=== PATIENT | male | born 1955 | race Caucasian/White ===

== ENCOUNTER 2017-04-04 11:03 | Emergency (ER) | payer MEDICAID ==
[2017-04-04 11:04] VITALS: BMI 27.8
[2017-04-04 11:10] VITALS: O2SAT 96
--- NOTE | 2017-04-04 12:08 | C.PDOC ---
History Of Present Illness 61 year old male was brought to the ED by EMS with complaints of upper left back pain, left elbow and left ankle pain since this morning after falling in the bath tub. Patient denies LOC, head trauma, confusion, abdominal pain, dizziness or vomiting. Time Seen by Provider: 04/04/17 11:22 Chief Complaint (Nursing): Back Pain History Per: Patient History/Exam Limitations: no limitations Onset/Duration Of Symptoms: Hrs Current Symptoms Are (Timing): Still Present Quality Of Discomfort: "Pain" Associated Symptoms: None Recent travel outside of the [place]: No Additional History Per: EMS Past Medical History Reviewed: Historical Data, Nursing Documentation, Vital Signs Vital Signs: Last Vital Signs Temp 98.9 F 04/04/17 12:10 Pulse 77 04/04/17 12:10 Resp 18 04/04/17 12:10 BP 135/80 04/04/17 12:10 Pulse Ox 96 04/04/17 13:51 - Medical History PMH: Diabetes, HTN, Hypercholesterolemia Family History: States: Unknown Family Hx - Social History Hx Tobacco Use: No Hx Alcohol Use: No Hx Substance Use: No - Immunization History Hx Tetanus Toxoid Vaccination: No Hx Influenza Vaccination: No Hx Pneumococcal Vaccination: No Review Of Systems Constitutional: Negative for: Fever, Chills Eyes: Negative for: Vision Change ENT: Negative for: Ear Pain, Throat Pain Cardiovascular: Negative for: Chest Pain Respiratory: Negative for: Shortness of Breath Gastrointestinal: Negative for: Nausea, Vomiting Musculoskeletal: Positive for: Arm Pain (left elbow pain), Back Pain (upper left back pain), Foot Pain (left ankle pain) Skin: Negative for: Bruising Neurological: Negative for: Weakness, Numbness, Headache, Dizziness Physical Exam - Physical Exam Appears: Non-toxic, No Acute Distress Skin: Warm, Dry Head: Atraumatic, Normacephalic Eye(s): bilateral: Normal Inspection, EOMI Oral Mucosa: Moist Neck: Normal ROM, No Midline Cervical Tenderness, No Paracervical Tenderness, Supple Chest: Symmetrical, No Deformity Cardiovascular: Rhythm Regular Respiratory: Normal Breath Sounds, No Wheezing Back: Normal Inspection, No Vertebral Tenderness, No Decreased ROM, No Paraspinal Tenderness, Other ( Tender hematoma to left scapular area ) Extremity: Normal ROM (Full ROM of the left elbow), Tenderness (Tenderness to medial aspect of the left ankle and lateral left elbow), No Pedal Edema, No Calf Tenderness, Capillary Refill (good capillary refill, less than two seconds ), No Deformity, No Swelling Neurological/Psych: Oriented x3, Normal Speech Gait: Steady ED Course And Treatment O2 Sat by Pulse Oximetry: 96 (room air ) - Radiology CXR: Viewed By Me, Read By Radiologist CXR Interpretation: Yes: No Acute Disease. No: Infiltrates - Other Rad Left Ankle X-Ray X-Ray: Interpreted by Me, Viewed By Me Interpretation: Negative for fracture and dislocation. Progress Note: CXR, Left Ankle and Left Elbow X-ray were ordreed. Patient was given Motrin. All imaging reviewed with no findings. Patient reports pain mildly improving. Recommend rest, ice and to take Ibuprofen as needed. Disposition Counseled Patient/Family Regarding: Studies Performed, Diagnosis, Need For Followup, Rx Given - Disposition Referrals: [facility] [Outside] [facility] [Outside] Disposition: HOME/ ROUTINE Disposition Time: 12:15 Condition: GOOD Additional Instructions: Xray reviewed showing no acute fracture or dislocation. Advise to rest and take pain medication as needed, ibuprofen 600mg every 8 hours with food to not upset stomach. If pain persists, follow up with orthopedic in one week. Prescriptions: Ibuprofen [Motrin] 600 mg PO Q8 #30 tab Instructions: Contusion in Adults (ED) Forms: [employer] (Turkmen) Print Language: UKRAINIAN - POA Present On Arrival: None - Clinical Impression Clinical Impression: Contusion of back, Contusion of elbow, left, Left ankle injury, Fall in bathtub - Scribe Statement The provider has reviewed the documentation as recorded by the Scribjovany Cai All medical record entries made by the Jahairaibjovany were at my direction and personally dictated by me. I have reviewed the chart and agree that the record accurately reflects my personal performance of the history, physical exam, medical decision making, and the department course for this patient. I have also personally directed, reviewed, and agree with the discharge instructions and disposition.
[2017-04-04 12:24] VITALS: BP 135/80; PULSE 77; RESP 18; TEMP 98.9
--- NOTE | 2017-04-04 12:26 | RAD ---
HISTORY: pain s.p fall COMPARISON: Chest x-ray performed 04/17/16 TECHNIQUE: Chest PA and lateral FINDINGS: LUNGS: Biapical pleural thickening. No focal consolidation. Please note that chest x-ray has limited sensitivity for the detection of pulmonary masses. PLEURA: No significant pleural effusion identified. No definite pneumothorax . CARDIOVASCULAR: Heart size appears within normal limits. Ectatic aorta. OSSEOUS STRUCTURES: Degenerative changes. VISUALIZED UPPER ABDOMEN: Unremarkable. OTHER FINDINGS: None. IMPRESSION: No acute findings. See above.
--- NOTE | 2017-04-04 16:33 | RAD ---
PROCEDURE: Left Ankle Radiographs. HISTORY: pain s.p fall COMPARISON: None FINDINGS: BONES: Dorsal talar beaking. No fracture. Prominent posterior talar process (versus superimposed os trigonum was ( JOINTS: Minimal tibiotalar osteoarthritis. Ankle mortise maintained. Talar dome intact SOFT TISSUES: Normal. OTHER FINDINGS: None. IMPRESSION: No fracture
--- NOTE | 2017-04-04 16:33 | RAD ---
PROCEDURE: Radiographs of the left elbow. HISTORY: pain s.p fall COMPARISON: No prior. FINDINGS: BONES: Normal. No fracture. JOINTS: Normal. No osteoarthritis. SOFT TISSUES: Normal. JOINT EFFUSION: None. OTHER FINDINGS: None IMPRESSION: Unremarkable radiographs of the left elbow.
== END 2017-04-04 12:16 | disposition home or self-care (01) ==
LOC: C.ER 11:03
DX: S20.222A Contusion of left back wall of thorax, initial encounter (principal); S50.02XA Contusion of left elbow, initial encounter; S99.912A Unspecified injury of left ankle, initial encounter; W18.2XXA Fall in (into) shower or empty bathtub, initial encounter; Y93.E8 Activity, other personal hygiene; Y92.003 Bedroom of unspecified non-institutional (private) residence as the place of occurrence of the external cause

== ENCOUNTER 2017-08-17 09:24 | Emergency (ER) | payer MEDICAID ==
[2017-08-17 09:24] VITALS: BMI 27.8
[2017-08-17 09:36] VITALS: TEMP 97.7; O2SAT 100
[2017-08-17] MEDS ORDERED: Oxycodone/Acetaminophen 5/325 mg Tab PO STA (09:44)
[2017-08-17] MEDS ORDERED: Oxycodone/Acetaminophen 5/325 mg Tab ONE (09:49)
--- NOTE | 2017-08-17 10:51 | RAD ---
HISTORY: fall COMPARISON: No prior. FINDINGS: BONES: Alignment maintained. No fracture. Mid 1/3 thoracic and inferior thoraco lumbar level spondylosis DISC SPACES: Normal. SOFT TISSUES: Normal. OTHER FINDINGS: None. IMPRESSION: No fracture. Spondylosis
--- NOTE | 2017-08-17 10:52 | RAD ---
PROCEDURE: Cervical Spine Radiographs. HISTORY: Pain. COMPARISON: None. FINDINGS: BONES: Straightening of the normal cervical lordosis. No fracture. Dens Intact. Anterior spondylosis C5 6 and 7 with intervening disc space narrowing DISC SPACES: Narrowed as above SOFT TISSUES: Normal. No prevertebral soft tissue swelling. OTHER FINDINGS: None. IMPRESSION: Cervical spondylosis. No fracture
--- NOTE | 2017-08-17 10:56 | C.PDOC ---
History Of Present Illness 62yo male, presents to ED with complaints of back pain after he slipped and fell in his bathroom 4 days ago. States he went to a hospital in the [place] and was given Naprosyn and Flexeril, which he has been taking with mild improvement. Patient states he has persistent neck and back pain, prompting his visit today. He denies any weakness or numbness. No other complaints. Time Seen by Provider: 08/17/17 09:32 Chief Complaint (Nursing): Back Pain History Per: Patient History/Exam Limitations: no limitations Onset/Duration Of Symptoms: Days (4) Current Symptoms Are (Timing): Still Present Quality Of Discomfort: "Pain" Associated Symptoms: denies: Incontinence, New Weakness, New Numbness Past Medical History Reviewed: Historical Data, Nursing Documentation, Vital Signs Vital Signs: Last Vital Signs Temp 97.7 F 08/17/17 11:00 Pulse 72 08/17/17 11:00 Resp 16 08/17/17 11:00 BP 148/99 H 08/17/17 11:00 Pulse Ox 100 08/17/17 11:32 - Medical History PMH: Diabetes, HTN, Hypercholesterolemia Surgical History: No Surg Hx Family History: States: Unknown Family Hx - Social History Hx Tobacco Use: No Hx Alcohol Use: No Hx Substance Use: No - Immunization History Hx Tetanus Toxoid Vaccination: No Hx Influenza Vaccination: No Hx Pneumococcal Vaccination: No Review Of Systems Musculoskeletal: Positive for: Back Pain Neurological: Negative for: Weakness, Numbness Physical Exam - Physical Exam Appears: Non-toxic Neck: Supple Cardiovascular: Rhythm Regular Back: Paraspinal Tenderness (para-cervical and paralumbar tenderness) ED Course And Treatment O2 Sat by Pulse Oximetry: 100 (RA) Pulse Ox Interpretation: Normal - Other Rad XR T-Spine X-Ray: Read By Radiologist Interpretation: No fracture. Spondylosis XR C-Spine X-Ray: Read By Radiologist Interpretation: Cervical spondylosis. No fracture Medical Decision Making Medical Decision Making: Impression:Upper back injury Plan: -- Motrin 600 mg PO -- Percocet 1 tab po -- XR C-Spine -- XR T-Spine Disposition Counseled Patient/Family Regarding: Studies Performed, Diagnosis, Need For Followup, Rx Given - Disposition Referrals: [facility] [place] [Outside] [facility] [Outside] Disposition: HOME/ ROUTINE Disposition Time: 11:30 Condition: STABLE Additional Instructions: follow up with clinic in 2 days call to make an appointment take pain medications as needed return to hospital if symptoms worsens or progress Prescriptions: Acetaminophen/Codeine [Tylenol/Codeine 300 MG/30 MG] 1 tab PO Q6H PRN #12 tab PRN Reason: Pain, Severe (8-10) Cyclobenzaprine [Cyclobenzaprine HCl] 10 mg PO TID PRN #12 tab PRN Reason: Muscle Spasm Naproxen [Naprosyn] 500 mg PO BID PRN #16 tab PRN Reason: Pain, Moderate (4-7) Instructions: Back Pain (ED) Forms: Gen Discharge Inst Swedish, General Discharge Instructions, [facility] (C[place] Rican) Print Language: ANDORRAN - Clinical Impression Clinical Impression: Muscle strain, Neck pain, Thoracic back sprain - Scribe Statement The provider has reviewed the documentation as recorded by the Teressa Ellis Provider Attestation: All medical record entries made by the Teressa were at my direction and personally dictated by me. I have reviewed the chart and agree that the record accurately reflects my personal performance of the history, physical exam, medical decision making, and the department course for this patient. I have also personally directed, reviewed, and agree with the discharge instructions and disposition.
[2017-08-17 11:22] VITALS: BP 148/99; PULSE 72; RESP 16
== END 2017-08-17 11:44 | disposition home or self-care (01) ==
LOC: C.ER 09:24
DX: S23.3XXA Sprain of ligaments of thoracic spine, initial encounter (principal); W01.0XXA Fall on same level from slipping, tripping and stumbling without subsequent striking against object, initial encounter; M54.2 Cervicalgia; I10 Essential (primary) hypertension; E11.9 Type 2 diabetes mellitus without complications; E78.00 Pure hypercholesterolemia, unspecified